=== PATIENT | female | born 1975 | race Caucasian/White ===

== ENCOUNTER 2025-10-30 16:05 | Outpatient (CLI) | payer BC ==
--- NOTE | 2025-10-31 08:10 | RADIOLOGY REPORT ---
CLINICAL INFORMATION: PAIN IN RIGHT HIP;ILIOTIBIAL BAND SYNDROME, RIGHT LEG. TECHNIQUE: Multisequence multiplanar MRI images of the right hip were obtained without contrast. COMPARISON: None FINDINGS: BONES: No acute fracture or osteonecrosis. JOINT: [id number] joint space narrowing in both hips. Fraying of the anterior superior labrum of the right hip. Mild subchondral cystic change at the anterior superior right acetabulum. No significant joint effusion. BURSAE: Unremarkable. No significant fluid in the trochanteric or iliopsoas bursae. TENDONS: Mild tendinosis of the distal gluteus medius and minimus tendons. Origins of the rectus femoris tendon and hamstring tendons are intact. Distal insertion of the iliopsoas tendon is intact. Minimal edema adjacent to the iliotibial band. MUSCLES: Normal muscle bulk. No significant atrophy. No evidence of muscle strain or tear. OTHER: No other significant findings. IMPRESSION: 1. Fraying of the anterior superior labrum of the right hip and mild subchondral cystic change at the anterior superior acetabulum. 2. Mild tendinosis of the distal gluteus medius and minimus tendons. 3. Minimal edema adjacent to the proximal iliotibial band.
== END 2025-10-30 23:59 | disposition home or self-care (01) ==
LOC: MRI02 16:05
PROVIDERS: ATTEND Orthopaedic Surgery
DX: M76.01 Gluteal tendinitis, right hip (principal); M25.551 Pain in right hip; M76.31 Iliotibial band syndrome, right leg; M25.852 Other specified joint disorders, left hip; M25.851 Other specified joint disorders, right hip
CPT/HCPCS: 73721